=== PATIENT | female | born 1985 ===

== ENCOUNTER 2019-12-06 13:06 | Outpatient (CLI) | payer MEDICAID ==
[~2019-12-06] VITALS: Ht 157.5 cm; Wt 46.7 kg
[2019-12-06 16:04] VITALS: BP 114/70
[2019-12-06] MEDS ORDERED: IRON325 M1 PO (16:04)
--- NOTE | 2019-12-06 17:15 | Consultation ---
DATE OF CONSULTATION: 12/06/2019 CHIEF COMPLAINT: Anemia, diarrhea. HISTORY OF PRESENT ILLNESS: The patient is a 34-year-old female with past medical history of iron-deficiency anemia complained of one month of diarrhea, weight loss about 12 pounds, unwanted weight loss, and diarrhea. Denies any significant abdominal pain. No change in diet. PAST MEDICAL HISTORY: 1. Anemia. 2. Lactose intolerance. PAST SURGICAL HISTORY: Left foot surgery. MEDICATIONS: Iron. FAMILY HISTORY: Father had diabetes. SOCIAL HISTORY: The patient drinks socially. Denies any tobacco or IV drug abuse. ALLERGIES: To penicillin. MEDICATIONS: Please see medication reconciliation list. PHYSICAL EXAMINATION: VITAL SIGNS: Temperature 98.8, blood pressure 140/70, pulse 68, respirations 20. HEENT: Normocephalic and atraumatic. Sclerae are anicteric. NECK: Supple. No evidence of obvious lymphadenopathy. CARDIOVASCULAR: Regular rate and rhythm. Plus S1 and S2. LUNGS: Clear to auscultation bilaterally. ABDOMEN: Soft, nondistended, nontender. No rebound, no guarding. No peritoneal sign. EXTREMITIES: No cyanosis, no clubbing, no edema. ASSESSMENT AND PLAN: This is a 34-year-old female with iron-deficiency anemia, 12 pounds of weight loss, diarrhea, needs endoscopy and colonoscopy to rule out Crohn disease. The patient was given instruction for colonoscopy. Risks and benefits of procedure was explained to her. We will plan when authorization is obtained. Dayton Ayoub M.D. DR: Alissa JOB#: [id number] CC:
== END 2019-12-06 15:06 | disposition home or self-care (01) ==
LOC: PAN 13:06
DX: D50.9 Iron deficiency anemia, unspecified (principal); R19.7 Diarrhea, unspecified; R63.4 Abnormal weight loss; Z88.0 Allergy status to penicillin
CPT/HCPCS: G0463